=== PATIENT | male | born 1940 | race Caucasian/White ===

== ENCOUNTER 2023-08-08 11:21 | Emergency (ER) | payer MEDICARE, SELFPAY ==
[2023-08-08 11:36] VITALS: BP 109/76
[2023-08-08 13:28] VITALS: BMI 23.2
--- NOTE | 2023-08-08 13:48 | ED.GENMED ---
History of Present Illness
<Tasha Edwards PA-C - Last Filed: 08/09/23 19:18>
General
Chief Complaint: Generalized Pain
Source: patient
Exam Limitations: none
Time Seen by Provider: 08/08/23 13:20
Nursing documentation reviewed up to this point in time: agreed with
Travel History
Have you had any contact with someone who has COVID-19?: No
Do you have any symptoms of coronavirus? Fever > 100 degrees, chills, cough, shortness of breath, sore throat, loss of taste or smell, muscle aches, or headache?: No
History of Present Illness
History of Present Illness:
Patient is a 83 y.o male presenting for evaluation of worsening right rib pain in the setting of known nondisplaced 7th rib fracture. Patient was seen in the ER two days ago after sustaining a trip and fall, found to have a nondisplaced seventh rib
fracture, and discharged with Percocet. Patient has been taking Percocet [id number] for the past 2 days without improvement. He is unable to sleep or move from bed due to the pain. He is endorsing mild shortness of breath. No fevers,
cough, hemoptysis. No chest pain, abdominal pain.
Past History
<Tasha Edwards PA-C - Last Filed: 08/09/23 19:18>
Past History
ED Past Medical History: CAD, COPD, HTN, Hypercholesterolemia and Other (kidney stones)
ED Past Surgical History: Urological
Social History
Tobacco: Non-smoker
Personal:
Living: with family
Phy Exam
<Tasha Edwards PA-C - Last Filed: 08/09/23 19:18>
Physical Exam
Physical Exam:
General: In moderate distress and non-toxic, vital signs reviewed patient afebrile
HEENT: Atraumatic, normocephalic; pupils equal round reactive light bilaterally, protecting airway
Neck: appears supple, no meningeal signs, trachea midline
CV: Regular rate and rhythm, heart sounds normal no evidence of cyanosis
Resp: Mild bilateral wheeze; no evidence of respiratory distress, no accessory muscle use
Abd: Non-distended
Extremities: No deformities
Neuro: alert and oriented, speech normal, no focal motor deficits
Psych: Normal affect
Skin: Intact, significant bruising around right rib cage
Course
<Tasha Edwards PA-C - Last Filed: 08/09/23 19:18>
Orders/Labs/Results
Orders:
Orders
08/08/23 13:59
Morphine Sulfate 4 mg IV NOW STA
Ondansetron Injectable [Zofran] 4 mg IV NOW STA
08/08/23 14:08
CR Chest - 2 Views Urgent
Comment:
Reason For Exam: rib fracture, worsening pain
Vital Signs
Initial and Last Documented VS:
Initial Vital Signs
Temp Pulse Resp BP Pulse Ox
98.7 F 93 20 109/76 95
08/08/23 11:36 08/08/23 11:36 08/08/23 11:36 08/08/23 11:36 08/08/23 11:36
Last Documented Vital Signs
Temp Pulse Resp BP Pulse Ox
98.5 F 62 16 102/68 92
08/08/23 16:32 08/08/23 16:32 08/08/23 16:32 08/08/23 16:32 08/08/23 16:32
<Reji Webster DO - Last Filed: 08/13/23 01:18>
Orders/Labs/Results
Orders:
Orders
08/08/23 13:59
Morphine Sulfate 4 mg IV NOW STA
Ondansetron Injectable [Zofran] 4 mg IV NOW STA
08/08/23 14:08
CR Chest - 2 Views Urgent
Comment:
Reason For Exam: rib fracture, worsening pain
Vital Signs
Initial and Last Documented VS:
Initial Vital Signs
Temp Pulse Resp BP Pulse Ox
98.7 F 93 20 109/76 95
08/08/23 11:36 08/08/23 11:36 08/08/23 11:36 08/08/23 11:36 08/08/23 11:36
Last Documented Vital Signs
Temp Pulse Resp BP Pulse Ox
98.5 F 62 16 102/68 92
08/08/23 16:32 08/08/23 16:32 08/08/23 16:32 08/08/23 16:32 08/08/23 16:32
<Tasha Edwards PA-C - Last Filed: 08/09/23 19:18>
MDM/Problems Addressed
Differential Diagnosis Includes:
Persistent pain from rib fracture, atelectasis, pneumothorax, pneumonia
MDM/Problems Addressed:
Patient is an 83-year-old male presenting 2 days status post trip and fall resulting in nondisplaced fracture of seventh rib. Persistent pain, mild shortness of breath. Taking Percocet as prescribed at discharge [id number] without any
improvement. Patient is in a moderate amount of pain O2 sat at 95 on arrival to ED today. He is stable but in significant pain. Will place IV give 4 MGs of IV morphine and Zofran, repeat chest x-ray.
O2 sat dropped after morphine to 88. Placed on 2 L nasal cannula with prompt improvement to 96. Pain much improved after morphine.
Chest x-ray shows no evidence of pneumonia, pneumothorax, or other acute cardiopulmonary process.
Trialed turning off oxygen to evaluate patient's response. He continued to sat in the low 90s. Recommended admission for pain control and oxygenation. Patient does not wish to be admitted. He states that he has oxygen at home and insist that he
will use it at home. Lengthy discussion with patient and patient's son regarding admission versus discharge with close return precautions and oxygen use at home. They prefer discharge. Will use 2 L oxygen at home, continue Percocet, continue
incentive spirometry. Return precautions discussed. Patient and patient's son comfortable this plan, all questions answered
Chronic conditions affecting care:
COPD, hypertension, hyperlipidemia
Acute Exacerbation and/or Progression of Chronic Illness:
Rib fracture
<Tasha Edwards PA-C - Last Filed: 08/09/23 19:18>
*Radiology
Radiology exam reviewed: preliminary read by ED provider and radiology read reviewed
*Pulse Oximetry
Patient hypoxic: yes
Comment: placed on 2L oxygen by nasal cannula
*Critical Care Note
Total Time (30-74mins, 75-104mins- exclusive of procedures): Not Applicable
ED Attending Note
<Tasha Edwards PA-C - Last Filed: 08/09/23 19:18>
-
Portions of this chart may have been created with voice recognition software.� Occasional wrong word or��sound alike� substitutions may have occurred due to the inherent limitations of voice recognition software.
<Reji Webster, - Last Filed: 08/13/23 01:18>
ED Attending Note
Patient seen and examined by attending physician: Yes
ED Attending Note:
I have reviewed and agree with history and treatment plan by Tasha Edwards. My exam reveals 83-year-old male with clear lungs, tender to palpation right ribs. Mild hypoxia, but states he has oxygen at home. Patient stable for discharge. No
other signs of trauma.
Discharge Plan
Departure
Patient Disposition: Home (Routine Discharge)
Date of Disposition: 08/08/23
Time of Disposition: 16:14
Patient with high blood pressure during this ER visit?: No
Condition: Good
Covid-19: Not Applicable
Discharge Problem:
Fracture of rib
Instructions: Rib Fracture (DC)
Prescriptions:
No Action
clonazepam 0.5 MG tablet
0.5 mg PO BID PRN (Reason: anxiety)
Patient Comments:
08/09/2023, pt. filled this medication on 07/18/2023 for 60 tablets according to PDMP.
mirtazapine 15 MG tablet
15 mg PO HS
lisinopril 2.5 MG tablet
2.5 mg PO DAILY
atorvastatin 40 MG tablet
40 mg PO HS
bupropion HCl 150 mg Tablet Extended Release 24 Hr
150 mg PO DAILY
albuterol sulfate 2.5 mg /3 mL (0.083 %) Solution For Nebulization
2.5 mg INHALATION R Q6HPRN PRN (Reason: sob)
aspirin 81 mg Tablet,Delayed Release (Dr/Ec)
81 mg PO HS
risperidone 2 mg Tablet
2 mg PO HS
metoprolol tartrate 25 mg Tablet
25 mg PO BID
omega 3-pvo-vpg-fish oil [Fish Oil] 1,000 mg (120 mg-180 mg) Capsule
1 cap PO DAILY
Activity Restrictions/Additional Instructions:
-Return to the emergency room with any severe pain, shortness of breath, high fevers, coughing up blood, chest pain, significant worsening in current symptoms, or any other concerns
-As discussed - you should use your at home oxygen. We recommend using 2 liters
-Your prescription has been sent to your pharmacy. It may cause drowsiness - do not drive or operate machinery while on this medication.
-Continue to use your incentive spirometer as often as you are able and breathe deeply.
-Pain from your rib fracture may linger for many weeks. You can follow-up with primary care for further evaluation/management
Interventions
Interventions:
*Risk Screen - Suicide Last Done: 08/08/23 13:28
*General Assessment Last Done: 08/08/23 13:28
*Neglect/Abuse Screening Last Done: 08/08/23 13:28
ED- Fall Risk Assessment Last Done: 08/08/23 13:28
*ED COVID-19 Vaccine History Last Done: 08/08/23 11:36
*Nursing Disposition Last Done: 08/08/23 16:41
Discharge Date and Time
Discharge Date/Time: 08/08/23 16:54
Print Language: AFGHAN
[2023-08-08] MEDS: MORPHINE SULFATE 4 MG IV (14:31)
[2023-08-08] MEDS: ZOFRAN 4 MG IV (14:32)
--- NOTE | 2023-08-08 14:49 | EDRN ---
this RN noticed that the pts Sp02 on RA dipped to 88% after pain medication, this RN placed the pt on 3L NC and Sp02 came up to 96%, no c/o SOB, no c/o chest pain, provider Dr. Webster was made aware that the pt was placed on 02
[2023-08-08 14:55] VITALS: BP 118/72
--- NOTE | 2023-08-08 14:55 | EDRN ---
the pt VS WNL, this RN titrated 02 from 3L to 2L NC, no c/o pain, the pt is resting in stretcher in the lowest position, side rails up x2, HOB slightly elevated, Sp02 being continuously monitored, will continue to monitor the pt closely
--- NOTE | 2023-08-08 16:27 | EDRN ---
the pt was titrated off of [address] Webster, pt is to be discharged
[2023-08-08 16:32] VITALS: BP 102/68
== END 2023-08-08 16:54 | disposition home or self-care (01) ==
LOC: EMR 11:21
PROVIDERS: EMERGENCY PHYSICIAN Emergency Medicine
DX: S22.31XA Fracture of one rib, right side, initial encounter for closed fracture (principal); W01.0XXA Fall on same level from slipping, tripping and stumbling without subsequent striking against object, initial encounter; I10 Essential (primary) hypertension; E78.00 Pure hypercholesterolemia, unspecified; J44.9 Chronic obstructive pulmonary disease, unspecified
CPT/HCPCS: 71046; 96374; 96375; 99284

== ENCOUNTER → 2023-11-12 15:54 | Outpatient (REF) | payer MEDICARE, SELFPAY | LOC: DHCBS MAIN 15:54 | PROVIDERS: ATTENDING PHYSICIAN Internal Medicine Cardiovascular Disease; FAMILY PHYSICIAN Nurse Practitioner Adult Health | DX: I26.09 Other pulmonary embolism with acute cor pulmonale (principal) | CPT/HCPCS: 93306 ==

== ENCOUNTER → 2023-11-20 14:59 | Outpatient (REF) | payer MEDICARE, SELFPAY | LOC: HWRAD 14:59 | PROVIDERS: ATTENDING PHYSICIAN Nurse Practitioner Adult Health; FAMILY PHYSICIAN Nurse Practitioner Adult Health; REFERRING PHYSICIAN Internal Medicine Cardiovascular Disease | DX: I82.4Z1 Acute embolism and thrombosis of unspecified deep veins of right distal lower extremity (principal) | CPT/HCPCS: 93971 ==

== ENCOUNTER → 2024-03-25 10:00 | Outpatient (REF) | payer MEDICARE, SELFPAY ==
[2024-03-25 12:35] LABS: % Basophils 0.6 % (0-2); % Eosinophils 2.3 % (0-6); % Immature Granulocytes 0.4 % (0-0.5); % Lymphocytes 19.1 % (20.5-51.1); % Neutrophils 67.6 % (42.2-75.2); Absolute Basophils 0.1 10^3/uL (0-0.2); Absolute Eosinophils 0.2 10^3/uL (0-0.7); Absolute Lymphocytes 1.7 10^3/uL (1.2-3.4); Absolute Monocytes 0.9 10^3/uL (0.1-0.6); Hematocrit 45.3 % (39.0-52.0); Hemoglobin 14.9 g/dL (13.0-18.0); Mean Corp Hgb Conc. 32.9 g/dL (33.0-37.0); Mean Corpuscular Hgb 29.6 pg (27.0-31.0); Mean Corpuscular Volume 90.1 fL (80.0-94.0); Nucleated Red Blood Cells % 0 % (-); Platelet Count 253 10^3/uL (130-400); Red Blood Cell Count 5.03 10^6/uL (4.70-6.10); Red Cell Dist. Width 14.5 % (11.5-14.5); White Blood Cell Count 8.9 10^3/uL (4.8-10.8)
[2024-03-25 13:07] LABS: ALT (SGPT) 23 U/L (0-50); AST (SGOT) 28 U/L (17-59); Albumin 4.1 g/dl (3.5-5.0); Alkaline Phosphatase 135 U/L (38-126); Blood Urea Nitrogen 18 mg/dl (9-20); Calcium 9.3 mg/dl (8.4-10.2); Carbon Dioxide 24 mmol/L (22-30); Chloride 104 mmol/L (98-107); Glucose 103 mg/dl (70-99); HDL Cholesterol 28 mg/dl; LDL Cholesterol, Calculated 50 mg/dl; Potassium 4.4 mmol/L (3.5-5.1); Sodium 143 mmol/L (135-145); Total Bilirubin 0.9 mg/dl (0.2-1.3); Total Cholesterol 122 mg/dl (50-199); Total Protein 7.1 g/dl (6.3-8.2); Triglyceride 221 mg/dl (10-149); Very Low Density Lipoprotein 44 mg/dl (0-30); eGFR > 60.00
[2024-03-25 13:31] LABS: TSH 6.61 uIU/ml (0.47-4.68)
[2024-03-25 13:52] LABS: Glycohemoglobin (HgbA1c) 5.6 % (4.0-5.6)
== END ==
LOC: REG 10:00
PROVIDERS: ATTENDING PHYSICIAN Nurse Practitioner Adult Health
DX: R73.03 Prediabetes (principal); E78.2 Mixed hyperlipidemia; Z00.00 Encounter for general adult medical examination without abnormal findings
CPT/HCPCS: 36415; 80053; 80061; 83036; 84443; 85025

== ENCOUNTER → 2024-12-16 10:02 | Outpatient (REF) | payer MEDICARE, SELFPAY ==
[2024-12-16 11:20] LABS: Glycohemoglobin (HgbA1c) 5.8 % (4.0-5.6)
[2024-12-16 11:45] LABS: ALT (SGPT) 23 U/L (0-50); AST (SGOT) 21 U/L (17-59); Alkaline Phosphatase 125 U/L (38-126); Blood Urea Nitrogen 17 mg/dl (9-20); Calcium 9.3 mg/dl (8.4-10.2); Carbon Dioxide 25 mmol/L (22-30); Chloride 109 mmol/L (98-107); Glucose 131 mg/dl (70-99); HDL Cholesterol 29 mg/dl; LDL Cholesterol, Calculated 52 mg/dl; Potassium 4.2 mmol/L (3.5-5.1); Sodium 143 mmol/L (135-145); Total Bilirubin 0.7 mg/dl (0.2-1.3); Total Cholesterol 126 mg/dl (50-199); Total Protein 7.2 g/dl (6.3-8.2); Triglyceride 228 mg/dl (10-149); Very Low Density Lipoprotein 45 mg/dl (0-30); eGFR > 60.00
[2024-12-16 11:56] LABS: TSH Reflex To Free T4 6.33 uIU/ml (0.47-4.68)
[2024-12-16 12:26] LABS: Free T4 0.79 ng/dl (0.78-2.19)
== END ==
LOC: REG 10:02
PROVIDERS: ATTENDING PHYSICIAN Nurse Practitioner Adult Health
DX: Z00.00 Encounter for general adult medical examination without abnormal findings (principal); R73.03 Prediabetes; E78.2 Mixed hyperlipidemia; R79.89 Other specified abnormal findings of blood chemistry
CPT/HCPCS: 36415; 80053; 80061; 83036; 84439; 84443

== ENCOUNTER 2025-05-31 10:36 | Inpatient (IN) | payer MEDICARE, SELFPAY ==
[2025-05-31] VITALS (16 sets, daily range): BP systolic 97–163; BP diastolic 61–86; BMI 31.1; BMI 31.5
[2025-05-31 05:41] LABS: Hematocrit 43.5 % (39.0-52.0); Hemoglobin 13.7 g/dL (13.0-18.0); Mean Corp Hgb Conc. 31.5 g/dL (33.0-37.0); Mean Corpuscular Volume 91.8 fL (80.0-94.0); Nucleated Red Blood Cells % 0 % (-); Platelet Count 281 10^3/uL (130-400); Red Cell Dist. Width 15.0 % (11.5-14.5)
[2025-05-31 06:06] LABS: Blood Urea Nitrogen 21 mg/dl (9-20); Calcium 9.2 mg/dl (8.4-10.2); Carbon Dioxide 28 mmol/L (22-30); Chloride 104 mmol/L (98-107); Estimated Creatinine Clearance 61 ml/min; Glucose 111 mg/dl (70-99); Potassium 4.4 mmol/L (3.5-5.1); Sodium 141 mmol/L (135-145); eGFR > 60.00
--- NOTE | 2025-05-31 07:28 | ED.GENMED ---
History of Present Illness
<Fredrick Ferro PA-C - Last Filed: 05/31/25 11:28>
General
Chief Complaint: Fall
Source: patient and ambulance crew
Time Seen by Provider: 05/31/25 06:04
History of Present Illness
History of Present Illness:
85-year-old male with past medical history of COPD, CAD, hypertension and hyperlipidemia presenting to the emergency department for evaluation of 2 separate falls with 1 occurring 4 days ago and 1 occurring 2 days ago now with lower back pain,
generalized weakness and fatigue. Patient was reportedly unable to get up so had contacted EMS to bring him here. Patient denies any focal weakness or numbness, headache, abdominal pain, extremity related injury or any other concerns.
Nursing staff noted patient had dried blood around his lips on arrival but there was no clear source for where the bleeding had come from, patient reports he possibly vomited but denies any melena or hematochezia. He is on Eliquis due to the
history of CAD.
Past History
<Fredrick Ferro PA-C - Last Filed: 05/31/25 11:28>
Past History
ED Past Medical History: CAD, COPD, HTN, Hypercholesterolemia and Other (kidney stones)
ED Past Surgical History: Urological
Social History
Tobacco: Non-smoker
Alcohol: None
Drug: None
Personal:
Living: with family
Review of Systems
<Fredrick Ferro PA-C - Last Filed: 05/31/25 11:28>
Review of Systems
All Other Systems: ROS reviewed and negative except as documented in HPI and ROS
Phy Exam
<Fredrick Ferro PA-C - Last Filed: 05/31/25 11:28>
Physical Exam
Physical Exam:
GENERAL: Alert , in no apparent distress
EYE: clear conjunctiva b/l
HEAD: NCAT
ENT: o/p clr, mmm. Dried blood intraorally but no obvious intraoral lacerations/abrasion
CARDIAC: Regular rate and rhythm .
LUNGS: slightly rhonchorous lung sounds which patient reports is baseline for him with a slight wheeze noted, no rales, no acute respiratory distress however patient's O2 saturation ranges from 91% to 95% room air
ABDOMEN: Soft, without focal tenderness, no r/g, no cvat.
NEUROLOGICAL: Sleepy but arousable to voice, oriented x 3, patient does move all extremities however has pain with attempted flexion of both hips
SKIN: Warm and dry, skin intact.
MUSCULOSKELETAL: No edema, well perfused.
PSYCH: Normal and appropriate interaction.
Scores
<Fredrick Ferro PA-C - Last Filed: 05/31/25 11:28>
Heart Failure Risk
Heart Failure Risk Score: Not Applicable
Heart Score for Chest Pain Patients
STEMI patient?: Not applicable
Withdrawal Assessment of Alcohol
Withdrawal Assessment Completed?: Not applicable
Course
<Fredrick Ferro PA-C - Last Filed: 05/31/25 11:28>
Orders/Labs/Results
Orders:
Orders
05/31/25 05:31
CT Head W/o Iv Contrast Urgent
Comment:
Reason For Exam: fall on thinners
05/31/25 05:32
Basic Metabolic Panel Urgent
Complete Blood Count/With Diff Urgent
Creatine Phosphokinase Urgent
Comment: ADD ON
05/31/25 06:53
0.9% Sodium Chloride 1000 ml [Nss] 1,000 ml IV BOLUS
CR Chest - 2 Views Urgent
Comment:
Reason For Exam: falls, weakness, mild hypoxia
CR Lumbar Spine Comp Min 4 Vw* Urgent
Comment:
Reason For Exam: fall, pain
PT Consult [Pt Eval And Treat] Urgent
Activity Level: Ambulate
05/31/25 06:54
Electrocardiogram (*1) Urgent
Reason for Study: Fatigue / Weakness
EKG- Treatment ONCE
05/31/25 07:54
Add On- LAB Urgent
Tests Added?: cpk
05/31/25 08:09
COVID-19 Antigen Urgent
Source: Nasal Swab
Urinalysis Reflex To Culture Urgent
Date Specimen was Collected: 05/31/25
Time Specimen was Collected: 08:08
05/31/25 08:10
Venous Blood Gas Urgent
%Oxygen/Room Air: 93
05/31/25 08:30
Morphine Sulfate 2 mg IV NOW STA
05/31/25 09:49
Morphine Sulfate 2 mg IV NOW STA
05/31/25 10:17
Admit/Transfer Patient As Directed
Co-Sign Provider:
Level of Care: Inpatient admission
Assign to:: Medical/Surgical
Physician / Group: Harjit
Diagnosis: Falls, compression fracture
Reason for Hospitalization: Above
Expected length of stay greater than two midnights?: Yes
ELOS- Estimated Length of Stay in days: 2
I certify the patient meets the requirements for IP care: Yes
05/31/25 10:18
PRN Pain Medication Management As Directed
May give lesser potent ordered pain med per pt: Yes
preference::
Protocol:: Medication orders for pain may be administered in a
manner that supports deferring to patient preference
when the pt is:
- Requesting an ordered lesser potent pain medication.
Least to most potent pain medications are defined
as: acetaminophen < NSAID < tramadol < opioids
(morphine, oxycodone, hydromorphone).
- Requesting a lesser dose of the same medication IF
ORDERED.
- Requesting a less intrusive route of administration
if both routes are prescribed by the provider (PO <
IV).
05/31/25 10:20
Code Status As Directed
Resuscitation Status: Full Code
Abnormal Lab Results
05/31/25 05/31/25
05:32 08:10
MCHC 31.5 L g/dL
(33.0-37.0)
RDW 15.0 H %
(11.5-14.5)
Absolute Monos (auto) 0.7 H 10^3/uL
(0.1-0.6)
VBG pCO2 53 H mmHg
(35-48)
VBG HCO3 28.6 H mmol/L
(22-27)
BUN 21 H mg/dl
(9-20)
Glucose 111 H mg/dl
(70-99)
05/31/25 05:32
05/31/25 05:32
Vital Signs
Initial and Last Documented VS:
Initial Vital Signs
BP
143/86
05/31/25 05:22
Last Documented Vital Signs
Temp Pulse Resp BP Pulse Ox
97.8 F 56 18 138/70 93
05/31/25 05:26 05/31/25 10:00 05/31/25 10:00 05/31/25 10:00 05/31/25 11:00
<Dagoberto Rubio MD - Last Filed: 05/31/25 11:06>
Orders/Labs/Results
Orders:
Orders
05/31/25 05:31
CT Head W/o Iv Contrast Urgent
Comment:
Reason For Exam: fall on thinners
05/31/25 05:32
Basic Metabolic Panel Urgent
Complete Blood Count/With Diff Urgent
Creatine Phosphokinase Urgent
Comment: ADD ON
05/31/25 06:53
0.9% Sodium Chloride 1000 ml [Nss] 1,000 ml IV BOLUS
CR Chest - 2 Views Urgent
Comment:
Reason For Exam: falls, weakness, mild hypoxia
CR Lumbar Spine Comp Min 4 Vw* Urgent
Comment:
Reason For Exam: fall, pain
PT Consult [Pt Eval And Treat] Urgent
Activity Level: Ambulate
05/31/25 06:54
Electrocardiogram (*1) Urgent
Reason for Study: Fatigue / Weakness
EKG- Treatment ONCE
05/31/25 07:54
Add On- LAB Urgent
Tests Added?: cpk
05/31/25 08:09
COVID-19 Antigen Urgent
Source: Nasal Swab
Urinalysis Reflex To Culture Urgent
Date Specimen was Collected: 05/31/25
Time Specimen was Collected: 08:08
05/31/25 08:10
Venous Blood Gas Urgent
%Oxygen/Room Air: 93
05/31/25 08:30
Morphine Sulfate 2 mg IV NOW STA
05/31/25 09:49
Morphine Sulfate 2 mg IV NOW STA
05/31/25 10:17
Admit/Transfer Patient As Directed
Co-Sign Provider:
Level of Care: Inpatient admission
Assign to:: Medical/Surgical
Physician / Group: Harjit
Diagnosis: Falls, compression fracture
Reason for Hospitalization: Above
Expected length of stay greater than two midnights?: Yes
ELOS- Estimated Length of Stay in days: 2
I certify the patient meets the requirements for IP care: Yes
05/31/25 10:18
PRN Pain Medication Management As Directed
May give lesser potent ordered pain med per pt: Yes
preference::
Protocol:: Medication orders for pain may be administered in a
manner that supports deferring to patient preference
when the pt is:
- Requesting an ordered lesser potent pain medication.
Least to most potent pain medications are defined
as: acetaminophen < NSAID < tramadol < opioids
(morphine, oxycodone, hydromorphone).
- Requesting a lesser dose of the same medication IF
ORDERED.
- Requesting a less intrusive route of administration
if both routes are prescribed by the provider (PO <
IV).
05/31/25 10:20
Code Status As Directed
Resuscitation Status: Full Code
Abnormal Lab Results
05/31/25 05/31/25
05:32 08:10
MCHC 31.5 L g/dL
(33.0-37.0)
RDW 15.0 H %
(11.5-14.5)
Absolute Monos (auto) 0.7 H 10^3/uL
(0.1-0.6)
VBG pCO2 53 H mmHg
(35-48)
VBG HCO3 28.6 H mmol/L
(22-27)
BUN 21 H mg/dl
(9-20)
Glucose 111 H mg/dl
(70-99)
05/31/25 05:32
05/31/25 05:32
Vital Signs
Initial and Last Documented VS:
Initial Vital Signs
BP
143/86
05/31/25 05:22
Last Documented Vital Signs
Temp Pulse Resp BP Pulse Ox
97.8 F 56 18 138/70 93
05/31/25 05:26 05/31/25 10:00 05/31/25 10:00 05/31/25 10:00 05/31/25 11:00
<Fredrick Ferro PA-C - Last Filed: 05/31/25 11:28>
MDM/Problems Addressed
Differential Diagnosis Includes:
Accidental Fall
Low back contusion
Lumbar fracture
UTI
Electrolyte imbalance
Viral syndrome
ICH
MDM/Problems Addressed:
85-year-old male presenting to the ER for evaluation of 2 separate falls over the last 4 days, today complaining of significant lower back pain. At time of my exam patient is very weak, needs significant assistance moving around in bed. He is
quite sleepy but does arouse to voice. Labs and a head CT had been ordered on arrival. I did order additional testing including EKG, COVID test, x-ray of the back and chest. Physical therapy consultation ordered. I do anticipate patient will
need admission given his inability to ambulate or perform activities of daily living.
Chronic conditions affecting care: COPD
<Fredrick Ferro PA-C - Last Filed: 05/31/25 11:28>
*Radiology
Radiology exam reviewed: preliminary read by ED provider (Suspected L2 compression fx) and radiology read reviewed
*Pulse Oximetry
SaO2: 92
Oxygen Mode of Delivery: Room air
Patient hypoxic: yes
*EKG
Heart Rate: 57
Rate: bradycardiac
Rhythm: sinus
[place]: left axis deviation
Interval: first degree heart block
*Packing Tractor Machine Operator Interpretation
Rate: normal
Heart Rate: 67
Rhythm: sinus
*Critical Care Note
Total Time (30-74mins, 75-104mins- exclusive of procedures): Not Applicable
Data Reviewed
Review of Other/Old Records Reveals: Labs and Records
<Fredrick Ferro PA-C - Last Filed: 05/31/25 11:28>
Patient Management
Social determinants of health affecting care: Living situation
Discussion with other providers: Hospitalist
Escalation/DeEscalation of care consider admission/obs:
Patient's x-ray of the lumbar spine shows a suspected L2 compression fracture. Radiology reviewed the chest x-ray which showed a possible pneumonia however patient is currently not coughing, no fevers and has no leukocytosis. Will defer antibiotic
treatment to hospitalist team. Given the patient's age, current inability to ambulate combined with multiple falls recently will plan for admission. Hospitalist team notified and accepts for continued evaluation and treatment. Patient's family
updated and are happy in agreement with this treatment plan.
ED Attending Note
<Fredrick Ferro PA-C - Last Filed: 05/31/25 11:28>
-
Portions of this chart may have been created with voice recognition software.� Occasional wrong word or��sound alike� substitutions may have occurred due to the inherent limitations of voice recognition software.
<Dagoberto Rubio MD - Last Filed: 05/31/25 11:06>
ED Attending Note
Patient seen and examined by attending physician: Yes
ED Attending Note:
Patient presents to ED from home after multiple falls mechanical, along with worsening generalized weakness, associated with decreased appetite. Patient is reporting mild lower back pain from the fall. Patient states that he has been using walker
due to weakness for some time, but does not know when it started. Denies headache or dizziness. Denies loss of sensation or weakness. Denies chest pain. Patient does report intermittent cough. Denies difficulty with urination. Denies vomiting
or diarrhea. Denies recent travel. Denies sick contact. Denies recent change in medications or diet.
Physical Exam
General: mild distress, chronically ill appearing. afebrile. weak
Head: nc/at. eomi
Neck: supple. no meningeal signs. normal posterior pharynx. no jvd. dry oral mucosa
Heart: s1/s2 regular rate and rhythm
Lungs: mild respiratory distress. rhonchi bilaterally
Abdomen: normal bowel sounds. not tender.
Back: no midline tenderness. mild diffuse lower tenderness to palpation. positive b/l straight leg raise at approx 30 degress
Neuro: alert and oriented x 3. no focal neurological deficits
Skin: no rash
Psychiatric: well kept. interactive and cooperative
Extremities: no edema. no calf tenderness.
History and exam concerning for significant generalized weakness, likely secondary to deconditioning due to inactivity with poor oral intake from recent multiple falls. No focal neurological deficit noted, but patient appears to be in mild painful
distress and unable to ambulate due to distress/pain. In addition, in light of chest x-ray findings, along with history of intermittent cough, patient will be started on empiric antibiotics and admitted for further evaluation and treatment.
Discharge Plan
Departure
Patient Disposition: Admit
Date of Disposition: 05/31/25
Time of Disposition: :
Presentation/result/management discussed w/ accepting MD/DO: Hospitalist
Discharge Problem:
Generalized weakness, Multiple falls, Closed compression fracture of L2 vertebra
Interventions
Interventions:
*Risk Screen - Suicide Last Done: 05/31/25 05:26
*General Assessment Last Done: 05/31/25 05:26
*Neglect/Abuse Screening Last Done: 05/31/25 05:26
*ED COVID-19 Vaccine History Last Done: 05/31/25 05:26
*ED Influenza Vaccine History Last Done: 05/31/25 05:26
ED-Musculoskeletal Assessment Last Done: 05/31/25 07:30
ED- Neurological Assessment Last Done: 05/31/25 07:30
ED-Skin Assessment Last Done: 05/31/25 07:30
[2025-05-31] MEDS: NSS 1000 IV ×2 (08:19→12:37)
[2025-05-31 08:31] LABS: Venous Blood Gas B.E. 1.8 mmol/L (-4 to +4); Venous Blood Gas O2 Sat % 70.0 %
[2025-05-31 08:33] LABS: Urine Character Clear (Clear)
[2025-05-31] MEDS: MORPHINE SULFATE 2 MG IV ×2 (08:40→10:04)
[2025-05-31 08:56] LABS: COVID-19 Antigen Negative (Negative)
--- NOTE | 2025-05-31 10:22 | HPS.HSE ---
Family Physician
-
Family Physician: Humberto Mcmillan
Chief Complaint
-
Falls at home
History of Present Illness
Patient is 85 years old male with past medical history significant for COPD, pulmonary embolism, CAD, hypertension, anxiety and depression who presents to the emergency room from home with multiple falls. Reported multiple falls at home with
increasing generalized fatigue and weakness and inability to walk. Patient denies any fever, denies any acute respiratory, gastrointestinal, urinary symptoms. Denies any syncope or seizures.
In the emergency room patient found to be hemodynamically stable with stable respiratory status
There was noted dried blood in his mouth and around the lips. Although patient denies any syncope, seizures, or bleeding. He complains of dry mouth and being thirsty.
Medical History
Past Medical History
Past Medical History: Reports CAD, COPD and Psychiatric (Depression/anxiety); Denies NIDDM or Seizures
Additional Past Medical History:
PE, right lower extremity DVT
Past Surgical History: Reports Orthopedic (Right total knee arthroplasty) and Other
Social History
Tobacco: Former Smoker
Alcohol: None
Drug: None
Personal:
Living: With Family
Family History
Family History: Not pertinent
Allergies / Home Medications
Allergies reflects when Allergies were last updated in [facility] ([facility] [employer]
Home Medications with original date entered in [facility] [employer])
Allergy/Medication List:
Allergies
Allergy/AdvReac Type Severity Reaction Status Date / Time
No Known Allergies Allergy Verified 05/31/25 05:30
Home Medications
mirtazapine 15 mg tablet 15 mg PO HS Depression 02/01/09
atorvastatin 40 mg tablet 40 mg PO HS High Cholesterol 03/28/15
bupropion HCl 150 mg 24 hr tablet, extended release 150 mg PO DAILY Depression 08/08/23
aspirin 81 mg tablet,delayed release 81 mg PO HS Blood Clot Prevention/Tx 08/09/23
metoprolol tartrate 25 mg tablet 25 mg PO BID Heart Disease/Condition 08/09/23
omega 9-gvc-gps-fish oil 1,000 mg (120 mg-180 mg) capsule (Fish Oil) 1 cap PO BID Supplement 08/09/23
risperidone 2 mg tablet 2 mg PO HS Depression 08/09/23
acetaminophen 325 mg tablet 650 mg (2 x 325 mg) PO Q4HPRN PRN MILD PAIN #30 tabs 08/16/23
clonazepam 0.5 mg tablet 0.5 mg PO BID PRN anxiety #10 tabs 08/16/23
pantoprazole 20 mg tablet,delayed release 20 mg PO DAILY #30 tabs 08/16/23
apixaban 5 mg tablet (Eliquis) 5 mg PO BID 05/31/25
fluticasone fur. 200 mcg-umeclid 62.5 mcg-vilant 25 mcg inhalat.powder (Trelegy Ellipta) 1 inh inhalation BID 05/31/25
Review of Systems
-
A 12 point ROS was completed and negative except as noted: Yes
Physical Exam
Vital Signs
Vital Signs
Temp Pulse Resp BP Pulse Ox
97.8 F 56 18 138/70 92
05/31/25 05:26 05/31/25 10:00 05/31/25 10:00 05/31/25 10:00 05/31/25 10:01
Physical Exam
General: Well Developed, Well Nourished and No Apparent Distress
HEENT: NormoCephalic, Moist mucous membranes and Atraumatic
Respiratory: Clear
Cardiac: S1/S2 and Regular Rhythm; No Murmur or Rub
GI: Soft, Non Tender, Non Distended and Normal Bowel Sounds; No Organomegaly
Rectal: Deferred by Provider
Musculoskeletal: No Clubbing, No Cyanosis and No Edema
Skin: No Rash
Neuro: Nonfocal/grossly intact
Laboratory Results
-
05/31/25 05:32
05/31/25 05:32
Impression/Plan
-
IMPRESSION:
Severe ambulatory dysfunction with multiple falls at home
L2 compression fracture
Mild dehydration
Conditions prior to admission
Pulmonary embolism/right lower extremity DVT 08/21. On anticoagulation with Eliquis
COPD with prior history of hypoxic and hypercarbic respiratory failure in the settings of acute PE
Asbestosis
CAD
Essential hypertension
Anxiety/depression
Prior history of marijuana and tobacco smoking
PLAN:
Severe ambulatory dysfunction with multiple falls at home.
Patient denies any syncope.
Neurologic exam with no focal findings other than severe bilateral lower extremity weakness.
CT head with no acute abnormalities.
Spinal x-ray with undetermined age L2 compression fracture
Admitted for physical and Occupational Therapy evaluation possibly placement to detention facility.
Continue supportive care
Adjust analgesic regimen with PT eval
Mild dehydration baseline noted with mild elevation of BUN and creatinine.
Continue IV fluids
Follow BMP
Chronic COPD.
Exam with no bronchospasm
Chest x-ray with left lower lobe opacity questionable pneumonia, although patient with no fever, normal white count and no respiratory complaints
Check procalcitonin
Speech and swallow evaluation
History of asbestosis. In review of primary imaging including CT scan there is a bibasilar scarring and bronchiectasis.
Monitor closely off antibiotics
Continue trilogy Ellipta
History of pulmonary embolism with right popliteal DVT.
Possibly provoked. Patient with prior history of right total knee arthroplasty.
Continue anticoagulation with apixaban.
Continue PPI
History of CAD.
Continue metoprolol and statin
No clear indication for aspirin while on Eliquis
Depression, anxiety.
Preadmission regimen including clonazepam as needed, risperidone as needed, mirtazapine, bupropion.
Full code
DVT prophylaxis Eliquis
[2025-05-31] MEDS: ZITHROMAX INFUSION 250 IV (11:12)
[2025-05-31] MEDS: ELIQUIS 5 MG PO ×2 (12:36→21:05)
[2025-05-31] MEDS: TYLENOL 650 MG PO ×2 (12:37→21:08)
[2025-05-31 12:55] LABS: Procalcitonin < 0.05 ng/ml (0.0-0.25)
--- NOTE | 2025-05-31 13:22 | CM ---
Chart reviewed and spoke with patient at ED bedside and Helio souza on the phone
Pt lives with Amar[facility] at [address] with rails
Able to walk with cane or walker
Needs assistance with adlS
MOW 5 times a week. sharla Oro and harley Cadet all check on the daily taking turns
, 88 yo old , has MS but Helio states that his is in good physical health compared to patient
Supportive children l
PCP Dr. Humberto Mcmillan
RX plan yes
Pharmacy [facility]
HX of [facility]
HX of [place] in the past
Discussed with harley Cadet about getting more help at home. Helio stated that he was thinking about placing in LTC but not sure at this time. Declined any other assistance at this time
DCP home with services vs SNF when medically clear
CM will continue to follow up for any dcp needs
[2025-05-31] MEDS: SYMBICORT 160/4.5 MCG INHALER 2 PUFF INH (19:17)
[2025-05-31] MEDS: LOPRESSOR 25 MG PO (21:05)
[2025-05-31] MEDS: LIPITOR 40 MG PO (21:06)
[2025-05-31] MEDS: RISPERDAL 2 MG PO (21:06)
[2025-05-31] MEDS: REMERON 15 MG PO (21:06)
[2025-05-31] MEDS: ULTRAM 25 MG PO (22:38)
[2025-05-31] MEDS: DESENEX/MITRAZOL/ZEASORB 1 APPLIC TOPICAL (22:39)
[2025-06-01] MEDS: SYMBICORT 160/4.5 MCG INHALER 2 PUFF INH ×2 (08:11→20:21)
[2025-06-01] MEDS: SPIRIVA RESPIMAT 2.5 MCG 2 PUFF INH (08:11)
[2025-06-01 08:16] LABS: Hematocrit 40.2 % (39.0-52.0); Hemoglobin 12.5 g/dL (13.0-18.0); Mean Corp Hgb Conc. 31.1 g/dL (33.0-37.0); Mean Corpuscular Volume 94.8 fL (80.0-94.0); Nucleated Red Blood Cells % 0 % (-); Platelet Count 248 10^3/uL (130-400); Red Cell Dist. Width 15.2 % (11.5-14.5)
[2025-06-01 08:26] VITALS: BP 152/77
[2025-06-01 08:49] LABS: Blood Urea Nitrogen 14 mg/dl (9-20); Calcium 8.4 mg/dl (8.4-10.2); Carbon Dioxide 27 mmol/L (22-30); Chloride 105 mmol/L (98-107); Estimated Creatinine Clearance 75 ml/min; Glucose 101 mg/dl (70-99); Potassium 4.5 mmol/L (3.5-5.1); Sodium 139 mmol/L (135-145); eGFR > 60.00
[2025-06-01] MEDS: LOPRESSOR 25 MG PO ×2 (09:13→20:23)
[2025-06-01] MEDS: PROTONIX 20 MG PO (09:13)
[2025-06-01] MEDS: WELLBUTRIN XL (24 hour extended release) 150 MG PO (09:13)
[2025-06-01] MEDS: ELIQUIS 5 MG PO ×2 (09:13→20:24)
[2025-06-01] MEDS: DESENEX/MITRAZOL/ZEASORB 1 APPLIC TOPICAL ×2 (09:17→21:48)
--- NOTE | 2025-06-01 10:48 | W.PN.HOSP.TC ---
Today's Communication/Plan
-
PT assessment
Add Roxicodone for better pain control
Most likely discharge to SNF when bed is available
Assessment / Plan
Assessment / Plan
IMPRESSION:
Severe ambulatory dysfunction with multiple falls at home
L2 compression fracture
Mild dehydration
Conditions prior to admission
Pulmonary embolism/right lower extremity DVT 08/21. On anticoagulation with Eliquis
COPD with prior history of hypoxic and hypercarbic respiratory failure in the settings of acute PE
Asbestosis
CAD
Essential hypertension
Anxiety/depression
Prior history of marijuana and tobacco smoking
PLAN:
Severe ambulatory dysfunction with multiple falls at home.
Patient denies any syncope.
Neurologic exam with no focal findings other than severe bilateral lower extremity weakness.
CT head with no acute abnormalities.
Spinal x-ray with undetermined age L2 compression fracture
Admitted for physical and Occupational Therapy evaluation possibly placement to penitentiary facility.
Continue supportive care
Adjust analgesic regimen with PT eval
Mild dehydration baseline noted with mild elevation of BUN and creatinine.
BUN and creatinine improved
Observe off IV fluids
Monitor oral intake
Chronic COPD.
Exam with no bronchospasm
Chest x-ray with left lower lobe opacity questionable pneumonia, although patient with no fever, normal white count and no respiratory complaints
Procalcitonin negative
Speech and swallow evaluation without evidence of overt aspiration
History of asbestosis. In review of primary imaging including CT scan there is a bibasilar scarring and bronchiectasis.
Monitor closely off antibiotics
Continue trilogy Ellipta
Add mucolytic's
History of pulmonary embolism with right popliteal DVT.
Possibly provoked. Patient with prior history of right total knee arthroplasty.
Continue anticoagulation with apixaban.
Continue PPI
History of CAD.
Continue metoprolol and statin
No clear indication for aspirin while on Eliquis
Depression, anxiety.
Preadmission regimen including clonazepam as needed, risperidone as needed, mirtazapine, bupropion.
Full code
DVT prophylaxis Eliquis
Anticipated Discharge: Within 24 hours
Subjective/Interval History
-
Date of Service: June 01, 2025
Objective Data
-
Labs:
Laboratory Results
06/01/25
07:25
WBC 9.4
Hgb 12.5 L
Hct 40.2
Plt Count 248
Sodium 139
Potassium 4.5
Chloride 105
Carbon Dioxide 27
BUN 14
Creatinine 0.9
Glucose 101 H
Calcium 8.4
Vital Signs:
Vital Signs
Temp Pulse Resp BP Pulse Ox
98 F 62 16 152/77 92
06/01/25 08:26 06/01/25 09:13 06/01/25 08:26 06/01/25 09:13 06/01/25 08:26
I&O
05/31/25 06/01/25 06/02/25
06:59 06:59 06:59
Output Total 1650 / 1650
Balance -1650 / -1650
Physical Exam
-
General: Well Developed and No Apparent Distress
HEENT: Normocephalic, Atraumatic, Moist Mucous Membranes and Oxygen (3-4L)
Respiratory: Decreased Breath Sounds
Cardiac: Regular Rhythm and S1/S2; Negative Murmur, Rub or Gallop
GI: Soft, Nontender, Nondistended and Normal Bowel Sounds; Negative Organomegaly
Rectal: Deferred by Provider
Musculoskeletal: No Clubbing, No Cyanosis and No Edema
Skin: Negative Rash
Neuro: Awake and Nonfocal/Grossly Intact
Psych: Calm
[2025-06-01] MEDS: MUCINEX 600 MG PO ×2 (11:13→20:24)
[2025-06-01] MEDS: ROXICODONE 5 MG PO ×2 (11:24→20:25)
--- NOTE | 2025-06-01 11:37 | CM ---
Addendum entered by Lyly Olvera 06/01/25 13:56:
Pt seen by PT, recommended SNF. Met with pt, agreeable to SNF referral. Referrals placed for [facility], [facility], [facility] and [facility]. Will need auth.
Original Note:
Received message from Dr Lombardi pt will need SNF. Awaiting PT/OT evaluations.
I met with pt, he is agreeable to referral to [facility], has been there in the past, also agrees to referrals to other local facilities.
Will await therapy evaluations prior to placing referrals.
[2025-06-01 12:36] VITALS: BP 155/77; PULSE 62
[2025-06-01 12:40] VITALS: BP 155/77; PULSE 62
[2025-06-01 15:03] VITALS: BP 135/70
[2025-06-01] MEDS: LIPITOR 40 MG PO (20:24)
[2025-06-01] MEDS: RISPERDAL 2 MG PO (21:47)
[2025-06-01] MEDS: REMERON 15 MG PO (21:47)
[2025-06-01 23:44] VITALS: BP 129/70
[2025-06-02] MEDS: SYMBICORT 160/4.5 MCG INHALER 2 PUFF INH (07:46)
[2025-06-02] MEDS: SPIRIVA RESPIMAT 2.5 MCG 2 PUFF INH (07:46)
[2025-06-02 08:00] VITALS: BP 140/77
[2025-06-02] MEDS: ELIQUIS 5 MG PO (09:46)
[2025-06-02] MEDS: PROTONIX 20 MG PO (09:46)
[2025-06-02] MEDS: MUCINEX 600 MG PO (09:46)
[2025-06-02] MEDS: LOPRESSOR 25 MG PO (09:46)
[2025-06-02] MEDS: WELLBUTRIN XL (24 hour extended release) 150 MG PO (09:46)
[2025-06-02] MEDS: DESENEX/MITRAZOL/ZEASORB 1 APPLIC TOPICAL (09:51)
[2025-06-02] MEDS: ROXICODONE 5 MG PO (10:44)
--- NOTE | 2025-06-02 11:57 | CM ---
Addendum entered by Lyly Olvera 06/02/25 12:08:
[facility] report number [phone], fax [phone], clinicals faxed.
Original Note:
Spoke with Marion at [facility] for SNF auth ; Auth Number [id number] approved 06/02-06/04 Clinical faxed to [phone]
phone number [phone] Spoke with Cyn at [facility] to inform approval. Will coordinate transportation
--- NOTE | 2025-06-02 12:14 | W.DS.TRANS ---
DC Summary - [facility]
-
Discharge Instructions:
Discharge Diagnosis/Procedures IMPRESSION:
Severe ambulatory dysfunction with multiple
falls at home
L2 compression fracture
Mild dehydration
Conditions prior to admission
Pulmonary embolism/right lower extremity DVT
24. On anticoagulation with Eliquis
COPD with prior history of hypoxic and
hypercarbic respiratory failure in the settings
of acute PE
Asbestosis
CAD
Essential hypertension
Anxiety/depression
Prior history of marijuana and tobacco smoking
Diet Regular
Instructions:
Stand-Alone Forms:
Changes to Home Medications: Yes
Discharge Medications:
DC Medications w/original date entered in [email or web address]
mirtazapine 15 mg tablet 15 mg PO HS Depression 02/01/09
atorvastatin 40 mg tablet 40 mg PO HS High Cholesterol 03/28/15
bupropion HCl 150 mg 24 hr tablet, extended release 150 mg PO DAILY Depression 08/08/23
aspirin 81 mg tablet,delayed release 81 mg PO HS Blood Clot Prevention/Tx 08/09/23
metoprolol tartrate 25 mg tablet 25 mg PO BID Heart Disease/Condition 08/09/23
omega 2-vgz-pox-fish oil 1,000 mg (120 mg-180 mg) capsule (Fish Oil) 1 cap PO BID Supplement 08/09/23
risperidone 2 mg tablet 2 mg PO HS Depression 08/09/23
acetaminophen 325 mg tablet 650 mg (2 x 325 mg) PO Q4HPRN PRN MILD PAIN #30 tabs 08/16/23
pantoprazole 20 mg tablet,delayed release 20 mg PO DAILY #30 tabs 08/16/23
apixaban 5 mg tablet (Eliquis) 5 mg PO BID 05/31/25
fluticasone fur. 200 mcg-umeclid 62.5 mcg-vilant 25 mcg inhalat.powder (Trelegy Ellipta) 1 inh inhalation BID 05/31/25
clonazepam 0.5 mg tablet 0.5 mg PO BID PRN anxiety #10 tabs 06/02/25
guaifenesin 600 mg tablet, extended release 12 hr 600 mg PO Q12 #30 tabs 06/02/25
oxycodone 5 mg tablet 5 mg PO Q4HPRN PRN severe pain #14 tabs 06/02/25
Home Medication Changes
Initiated on oxycodone
Pending Results: No
--- NOTE | 2025-06-02 13:30 | CM ---
[facility] auth number [id number] and auth number provided to Cyn at [facility]
[2025-06-02 14:00] VITALS: BP 124/68
== END 2025-06-02 14:50 | DRG 552 ==
LOC: 1 ACUTE 10:36
PROVIDERS: Physician Assistant Medical; Student in an Organized Health Care Education/Training Program; ADMITTING PHYSICIAN Internal Medicine; EMERGENCY PHYSICIAN Emergency Medicine; FAMILY PHYSICIAN Internal Medicine
DX: S32.020A Wedge compression fracture of second lumbar vertebra, initial encounter for closed fracture (principal); Z11.52 Encounter for screening for COVID-19; Z87.891 Personal history of nicotine dependence; R29.6 Repeated falls; E86.0 Dehydration; Z86.711 Personal history of pulmonary embolism; I10 Essential (primary) hypertension; F41.9 Anxiety disorder, unspecified; F32.A Depression, unspecified; Z79.01 Long term (current) use of anticoagulants; I25.10 Atherosclerotic heart disease of native coronary artery without angina pectoris; Z91.81 History of falling; Z96.651 Presence of right artificial knee joint; W19.XXXA Unspecified fall, initial encounter
CPT/HCPCS: 70450; 71046; 72110; 80048; 81003; 82550; 82805; 84145; 85025; 87811; 92610; 93005; 94640; 96361; 96374; 96376; 97163; 97167; 99285

== ENCOUNTER → 2025-06-08 10:44 | Outpatient (REF) | payer OTHER, MEDICARE, SELFPAY ==
[2025-06-08 12:01] LABS: Hematocrit 39.5 % (39.0-52.0); Hemoglobin 12.7 g/dL (13.0-18.0); Mean Corp Hgb Conc. 32.2 g/dL (33.0-37.0); Mean Corpuscular Volume 92.7 fL (80.0-94.0); Nucleated Red Blood Cells % 0 % (-); Platelet Count 321 10^3/uL (130-400); Red Cell Dist. Width 15.2 % (11.5-14.5)
[2025-06-08 12:14] LABS: ALT (SGPT) 20 U/L (0-50); AST (SGOT) 17 U/L (17-59); Albumin 3.7 g/dl (3.5-5.0); Alkaline Phosphatase 175 U/L (38-126); Blood Urea Nitrogen 27 mg/dl (9-20); Calcium 9.0 mg/dl (8.4-10.2); Carbon Dioxide 26 mmol/L (22-30); Chloride 104 mmol/L (98-107); Glucose 107 mg/dl (70-99); Magnesium 2.1 mg/dl (1.6-2.3); Potassium 4.6 mmol/L (3.5-5.1); Sodium 137 mmol/L (135-145); Total Protein 6.7 g/dl (6.3-8.2); eGFR > 60.00
== END ==
LOC: OLABWHC 10:44
PROVIDERS: ATTENDING PHYSICIAN Family Medicine
DX: S32.020D Wedge compression fracture of second lumbar vertebra, subsequent encounter for fracture with routine healing (principal)
CPT/HCPCS: 36415; 80053; 83735; 85025